=== PATIENT | male | born 1970 | race Caucasian/White ===

== ENCOUNTER 2019-04-03 10:56 | Emergency (ER) | payer BC, SELFPAY ==
[2019-04-03 10:57] VITALS: BP 150/82; PULSE 85; RESP 16; TEMP 36.1; O2SAT 98; BMI 34.6
--- NOTE | 2019-04-03 11:38 | ED.DCSUM_ITS ---
History of Present Illness <JonathanmichelleLakeshiahakanred - Last Filed: 04/03/19 11:43> Informant: Patient, Family Onset: Today Context: Sudden Onset Timing: Continuous Quality: sharp Location: scalp Current Severity: Mild Maximum Severity: Mild Worsened by: nothing Relieved by: nothing Associated Symptoms: denies Narrative: 48-year-old male presents to the emergency department with a scalp laceration. This occurred just prior to arrival. Golfing with his son and on backswing was struck in the left temporal scalp close to the top of his head. He did not lose consciousness. He is not on blood thinners. He is on Plavix. He is not having a headache. He is not dizzy. He is not lightheaded. He does not feel nauseous. He does not remember when his last tetanus immunization was. He is with his family. He has been acting normally speaking normally and walking normally. He has no other complaints at this time. Prior similar symptoms: No Recent Illness/Hospitalization: No <ShreedipikaSnehalEris - Last Filed: 04/03/19 11:47> Chief Complaint: Laceration Past Medical History <JonathanmichelleLakeshiahakanred - Last Filed: 04/03/19 11:43> Prior records reviewed: Yes Past Medical History: - - HTN, hyperlipidemia, type 2 diabetes mellitus Lives: With Family Smoking Status: Never smoker <ShreedipikaEris - Last Filed: 04/03/19 11:47> - Allergies and Home Meds Allergies/Adverse Reactions: Allergies No Known Allergies Allergy (Verified 04/03/19 10:57) Review of Systems All systems negative except as indicated Skin: Reports: Wounds <ShreedipikaSnehalEris - Last Filed: 04/03/19 11:47> Physical Exam Vital Signs/Narrative: Vital Signs Temp Pulse Resp BP Pulse Ox 04/03/19 10:57 96.9 F L 85 16 150/82 H 98 <JonathanmichelleZachariahmelissa - Last Filed: 04/03/19 11:43> Vital Signs/Narrative: Vital Signs Temp Pulse Resp BP Pulse Ox 04/03/19 10:57 96.9 F L 85 16 150/82 H 98 Inital Vital Signs reviewed: Yes General: Well nourished, Well developed, No Acute Distress Head: Normocephalic, Atraumatic Eyes: Perrl, EOMI ENT: Moist mucous membranes, - - No trauma to face nose mouth Neck: Supple, Nontender Cardiovascular: Regular rate, Regular rhythm Respiratory: No distress, CTA bilaterally, Chest nontender Back: Nontender Extremities: Nontender, No edema Skin: Normal color, No rash, Trauma - 4 cm scalp laceration. Mild active bleeding. Located front temp oral Neurological: Alert, Oriented x3, Cranial nerves II-XII grossly intact, Normal Strength, Normal Sensation, Normal Gait <Eris Villegas - Last Filed: 04/03/19 11:47> Diagnostic/Tx/Re-eval - Medical Decision Making Patient was seen with Eris, he hit his head with a golf club playing golf he has a 4 cm laceration to the left scalp area no LOC,, no real headache no neurologic complaints of any kind the area is very linear no step-off he is awake alert neuro cranial nerve exam all negative he will undergo suture repair see chart for full treatment details <Adis Vigil - Last Filed: 04/03/19 11:43> - Medical Decision Making Tetanus was updated. Neurologic exam is nonfocal. He has no signs of the head injury. Lidocaine with epinephrine used for anesthesia was also stopped for bleeding. Hua were applied. Discussed proper wound care and removal in 5 to 7 days by his family doctor. Discussed head injury precautions and return precautions. Patient was discharged <Eris Villegas - Last Filed: 04/03/19 11:47> Procedures - Lacerations No standard instances Depth: Skin Shape: Linear Prep: Sterile Conditions, Chlorhexadine Laceration repair: Irrigated, Lidocaine with epi, Local Irrigated (ml): 120 Number of Sutures/[place]: 5 Suture Information: - - hua <Eris Villegas - Last Filed: 04/03/19 11:47> ED Disposition <Adis Vigil - Last Filed: 04/03/19 11:43> <Eris Villegas - Last Filed: 04/03/19 11:47> - Plan for ED Patient: Disposition: Home or Assisted Living Diagnosis: Scalp laceration Instructions: LACERATION, Scalp, LACERATION, Extrem (Suture, Staple or Tape) Referrals: Giles Gonzalez MD [STAFF PHYSICIAN] -
[2019-04-03] MEDS: Diphth,Pertuss(Acell),Tet Vac 0.5 ML Vial IM (12:14)
== END 2019-04-03 12:18 | disposition home or self-care (01) ==
LOC: ED 11:51
PROVIDERS: Emergency Provider Physician Assistant Medical; Family Provider Nurse Practitioner Family; PCP Nurse Practitioner Family
DX: S01.01XA Laceration without foreign body of scalp, initial encounter (principal); W21.89XA Striking against or struck by other sports equipment, initial encounter; Y93.53 Activity, golf; Y92.9 Unspecified place or not applicable; Y99.9 Unspecified external cause status; Z23 Encounter for immunization; E11.9 Type 2 diabetes mellitus without complications; I10 Essential (primary) hypertension; E78.5 Hyperlipidemia, unspecified; Z79.84 Long term (current) use of oral hypoglycemic drugs; Z79.02 Long term (current) use of antithrombotics/antiplatelets; Z79.82 Long term (current) use of aspirin; Z79.899 Other long term (current) drug therapy
CPT/HCPCS: 12002; 90715; 99282